=== PATIENT | female | born 1975 | race Hispanic/Latino ===

== ENCOUNTER 2020-11-04 13:46 | Emergency (ER) | payer OTHER, SELFPAY ==
--- NOTE | ~2020-11-04 | XR_ITS ---
EXAMINATION: XR lumbar spine min 4V DATE: 11/04/2020 14:20 INDICATION: Pain radiating to both legs. TECHNIQUE: Anteroposterior, lateral, and bilateral oblique views of the lumbar spine, and cone-down l ateral view of the lumbosacral junction were obtained. COMPARISON: CT abdomen and pelvis dated 08/01/2018 and 12/03/2010 FINDINGS: Alignment is normal. Vertebral body heights are normal. No pars interarticularis defects. Mild disc h eight loss at L3-L4, L4-L5 and L5-S1. Mild bilateral sacroiliac osteoarthritis. Lumbar facet joints a re unremarkable. Benign sclerotic lesion at the left posterior iliac spine which is been present sinc e 2010. IMPRESSION: 1. Mild lumbar spondylosis. Reviewed, dictated and finalized at location A. IMPRESSION: 1. Mild lumbar spondylosis.
[2020-11-04 13:53] VITALS: BP 97/61; PULSE 71; RESP 16; TEMP 36.3; O2SAT 100
[2020-11-04] MEDS: LIDOCAINE 5% PATCH 1 PATCH TRANSDERM (15:17)
[2020-11-04] MEDS: CYCLOBENZAPRINE HCL 10 MG TABLET PO (15:17)
[2020-11-04] MEDS: HYDROcodone/acetaminophen (*CRX) 5-325 MG TABLET 1 TAB PO (15:17)
[2020-11-04 15:22] LABS: Add Urine Microscopic? NO; Appearance Urine Clear (Clear); Bilirubin Urine Negative (Negative); Blood Urine Negative (Negative); Color Urine Colorless (Yellow); Glucose Urine UA Negative (Negative); Ketones Urine Negative (Negative); Leukocyte Esterase Ur Negative LEU/UL (Negative); Nitrate Urine Negative (Negative); Protein Urine Negative (Negative); Urobilinogen Urine Negative mg/dL (<2.0)
[2020-11-04 15:28] LABS: Specific Grav Ur 1.004 (1.001-1.035)
--- NOTE | 2020-11-04 15:32 | ED.GENADULT ---
HPI - General Adult General Chief complaint: Back Pain/Injury Stated complaint: BACK PAIN Time Seen by Provider: 11/04/20 14:03 Source: patient and RN notes reviewed Mode of arrival: ambulatory Limitations: no limitations History of Present Illness HPI narrative: Patient is a 45-year-old female who presents to emergency department for evaluation of low back pain for 3 days across the lumbar region into the hips patient attempted [id number] medications with minimal improvement does note frequent lifting but denies injury or trauma illness patient on arrival does not appear distressed or uncomfortable she has not been seen for this complaint Related Data Home Medications Medication Instructions Recorded Confirmed allopurinol 11/04/20 11/04/20 ergocalciferol (vitamin D2) 11/04/20 [Vitamin D2] levonorg-eth estrad triphasic tablet 11/04/20 [Enpresse] lisinopril 11/04/20 loratadine mg 11/04/20 Allergies Allergy/AdvReac Type Severity Reaction Status Date / Time No Known Allergies Allergy Verified 11/04/20 13:46 Review of Systems Review of Systems: All systems reviewed & are unremarkable except as noted in HPI and below PMFSH Past Medical History Medical History (Updated 11/04/20 @ 15:38 by Ziyad Alexander PA-C) Chronic kidney disease Social History Social History Smoking status: Never smoker Gender identity (if verbalized by the patient): Female Exam Narrative: Exam Narrative: GENERAL: Well-appearing, well-nourished, and in no acute distress. HEAD: Normocephalic, atraumatic. EYES: PERRLA and EOMI. ENT: Nares clear, no rhinorrhea or epistaxis. Mucous membranes moist. CHEST: Clear to auscultation. No respiratory distress. No wheezes rales or rhonchi HEART: Regular rate and rhythm. No murmur heard. Normal peripheral pulses. EXTREMITIES: Normal range of motion. No edema. Tenderness across the lumbar spine SKIN: Warm, dry, no rash. NEURO: No focal deficits. Alert and oriented x3. Normal speech and gait PSYCH: Normal mood and affect. Course Course Emergency Course: Patient evaluated emergency department no concerning findings at this time will be referred back to primary care and treated medically ABCs and vital signs intact and stable patient made aware of case findings and treatment plan Vital Signs Vital signs: Vital Signs Temperature 97.3 F L 11/04/20 13:53 Pulse Rate 71 11/04/20 13:53 Respiratory Rate 16 11/04/20 13:53 Blood Pressure 97/61 L 11/04/20 13:53 Pulse Oximetry 100 11/04/20 13:53 Temperature 97.3 F L 11/04/20 13:53 Pulse Rate 71 11/04/20 13:53 Respiratory Rate 16 11/04/20 13:53 Blood Pressure 97/61 L 11/04/20 13:53 Pulse Oximetry 100 11/04/20 13:53 Medical Decision Making MDM Narrative Medical decision making narrative: Patients pain is positional in nature and localized to back without signs of cord compression or cauda equina based on neurological exam, skeletal exam and history. No fever or other significant factors to suggest osteomyelitis or spinal epidural abscess. No symptoms or signs to suggest pain is referred from abdominal or / cardiopulmonary sources. No pulsatile masses noted on exam. Patient ambulates with steady gait and is stable for outpatient management given case findings. Vital Signs Vital Signs: Vital Signs Temperature 97.3 F L 11/04/20 13:53 Pulse Rate 71 11/04/20 13:53 Respiratory Rate 16 11/04/20 13:53 Blood Pressure 97/61 L 11/04/20 13:53 Pulse Oximetry 100 11/04/20 13:53 Temperature 97.3 F L 11/04/20 13:53 Pulse Rate 71 11/04/20 13:53 Respiratory Rate 16 11/04/20 13:53 Blood Pressure 97/61 L 11/04/20 13:53 Pulse Oximetry 100 11/04/20 13:53 Lab Data Labs: Lab Results 11/04/20 Range/Units 15:10 Urine Color Colorless (Yellow) Urine Appearance Clear (Clear) Urine pH 7.0 (5.0-9.0) Ur
== END 2020-11-04 15:49 | disposition home or self-care (01) ==
PROVIDERS: Emergency Medicine Emergency Medical Services; Emergency Provider Emergency Medicine; PCP Family Medicine
DX: M54.5 Low back pain (principal); N18.9 Chronic kidney disease, unspecified
CPT/HCPCS: 72110; 81003; 81025; 99283; A9270

== ENCOUNTER 2021-03-18 08:38 | Emergency (ER) | payer OTHER, SELFPAY ==
[2021-03-18 08:47] VITALS: BP 111/75; PULSE 63; RESP 16; TEMP 36.3; O2SAT 100
[2021-03-18 08:48] VITALS: BP 111/75; PULSE 63; RESP 16; TEMP 36.3; O2SAT 100
--- NOTE | 2021-03-18 08:50 | ED.URI ---
HPI - URI/Sore Throat General Chief Complaint: Upper Respiratory Infection Stated Complaint: Sore Throat,Cough Time Seen by Provider: 03/18/21 08:50 Source: patient, RN notes reviewed and old records reviewed Mode of arrival: ambulatory Limitations: no limitations History of Present Illness HPI Narrative: 46-year-old female who presents to [facility] with complaints with cough and sore throat and runny nose. Patient states that she has had a dry irritated throat for 7-8 days and for the past 3 days she has had cough and body aches and runny nose.Patient has taken Loratadine daily, some cold and flu medication and using cough drops, and has also taken some aspirin for her body aches. Patient has history of polycystic kidney disease.Patient did have COVID 19 in November of 2019. MD elicited complaint: cough and sore throat Related Data Home Medications Medication Instructions Recorded Confirmed allopurinol 100 mg PO DIRECTED 11/04/20 03/18/21 ergocalciferol (vitamin D2) 1,250 mcg PO DAILY 11/04/20 03/18/21 [Vitamin D2] levonorg-eth estrad triphasic 1 tablet PO DAILY 11/04/20 03/18/21 [Enpresse] lisinopril 10 mg PO DAILY 11/04/20 03/18/21 loratadine 10 mg PO DAILY 11/04/20 03/18/21 ferrous sulfate [FeroSul] 325 mg PO DAILY 03/18/21 03/18/21 phentermine 37.5 mg PO DAILY 03/18/21 03/18/21 tolvaptan (polycys kidney dis) 1 ea PO DAILY 03/18/21 03/18/21 [Jynarque] Allergies Allergy/AdvReac Type Severity Reaction Status Date / Time No Known Allergies Allergy Verified 03/18/21 08:45 Review of Systems Review of Systems: CONSTITUTIONAL: Denies fever, chills, or sweats. EYES: Denies visual changes, redness, or discharge. ENT: Positive for rhinorrhea, congestion, sore throat, no otalgia. CARDIOVASCULAR: Denies chest pain, palpitations, or edema. RESPIRATORY: Positive cough denies dyspnea. GASTROINTESTINAL: Denies abdominal pain, nausea, vomiting, or diarrhea. GENITOURINARY: Denies dysuria or hematuria. SKIN: Denies rash or itching. MUSCULOSKELETAL: Denies acute back pain,no other joint pain, positive for body aches NEUROLOGIC: Denies headache, numbness, or weakness. PSYCHIATRIC: Denies anxiety or depression. All systems reviewed & are unremarkable except as noted in HPI and below PMFSH Past Medical History Medical History (Updated 03/19/21 @ 21:41 by Mariana Schwarz NP) Chronic kidney disease COVID-19 Hypertension Polycystic kidney disease Surgical History Surgical History (Updated 03/19/21 @ 21:39 by Mariana Schwarz NP) No history of previous surgery Family History Family History (Updated 03/18/21 @ 09:22 by Mariana Schwarz NP) Mother Breast cancer Carcinoma of colon Other Family history of polycystic kidney disease Social History Social History (Updated 03/19/21 @ 21:39 by Mariana Schwarz NP) Smoking status: Never smoker Alcohol intake: never Substance use: never Living arrangements: with family Gender identity (if verbalized by the patient): Female Comments At time of signature, agree with nursing past medical, surgical, social and family history. There is no relevant family history pertinent to the presenting complaint Exam Narrative: GENERAL: Well-appearing, well-nourished, and in no acute distress. HEAD: Normocephalic, atraumatic. EYES: PERRLA and EOMI. ENT: Nares red with some clear nasal rhinorrhea no epistaxis. Mucous membranes moist.TM's normal with good light reflex,throat with some redness no exudates or lesions, no tonsil enlargement some post nasal drainage noted NECK: Supple.no lymphadenopathy CHEST: Clear to auscultation. No respiratory distress.dry cough, SAO2 100% on room air. HEART: Regular rate and rhythm. No murmur heard. Normal peripheral pulses. ABDOMEN: Soft, nontender, nondistended, normal active bowel sounds. EXTREMITIES: Normal range of motion. No edema. SKIN: Warm, dry, no rash. NEURO: No focal deficits. Alert and oriented x3. Course Vital
== END 2021-03-18 09:44 | disposition home or self-care (01) ==
PROVIDERS: Emergency Provider Registered Nurse; PCP Family Medicine
DX: J06.9 Acute upper respiratory infection, unspecified (principal); J02.9 Acute pharyngitis, unspecified; Z20.822 Contact with and (suspected) exposure to COVID-19; I12.9 Hypertensive chronic kidney disease with stage 1 through stage 4 chronic kidney disease, or unspecified chronic kidney disease; N18.9 Chronic kidney disease, unspecified; E28.2 Polycystic ovarian syndrome; Z86.16 Personal history of COVID-19
CPT/HCPCS: 87081; 87426; 87880; 99213; C9803; G0463

== ENCOUNTER 2021-04-22 13:17 | Emergency (ER) | payer OTHER, SELFPAY ==
[2021-04-22 13:25] VITALS: BP 118/81; PULSE 64; RESP 16; TEMP 37.1; O2SAT 98
[2021-04-22] MEDS: predniSONE 10 MG TABLET 50 MG PO (14:00)
--- NOTE | 2021-04-22 14:06 | ED.GENADULT ---
HPI - General Adult General Chief complaint: Allergic Reaction Stated complaint: Swollen Lips Time Seen by Provider: 04/22/21 13:32 Source: patient and RN notes reviewed Mode of arrival: ambulatory Limitations: no limitations History of Present Illness HPI narrative: Patient presents today complaining of swelling to her upper lip since this morning. States it itches slightly, but denies pain. Denies any new medications, new foods, new household products. States similar symptoms have happened in the past when she was in a stressful situation. Now, her uncle a few days ago in [place]. She has tried no medications for symptoms prior to arrival. She did drive herself here today. Denies shortness of breath, difficulty swallowing, swelling in her tongue, scratchiness in her throat. MD complaint: Swollen lymph Related Data Home Medications Medication Instructions Recorded Confirmed allopurinol 100 mg PO DIRECTED 11/04/20 03/18/21 ergocalciferol (vitamin D2) 1,250 mcg PO DAILY 11/04/20 03/18/21 [Vitamin D2] levonorg-eth estrad triphasic 1 tablet PO DAILY 11/04/20 03/18/21 [Enpresse] lisinopril 10 mg PO DAILY 11/04/20 03/18/21 loratadine 10 mg PO DAILY 11/04/20 03/18/21 ferrous sulfate [FeroSul] 325 mg PO DAILY 03/18/21 03/18/21 phentermine 37.5 mg PO DAILY 03/18/21 03/18/21 tolvaptan (polycys kidney dis) 1 ea PO DAILY 03/18/21 03/18/21 [Jynarque] Allergies Allergy/AdvReac Type Severity Reaction Status Date / Time No Known Allergies Allergy Verified 03/18/21 08:45 Review of Systems Review of Systems: CONSTITUTIONAL: Denies body aches, fever, chills, or sweats. EYES: Denies visual changes, redness, or discharge. ENT: Denies rhinorrhea, congestion, sore throat, or otalgia.+ Swollen upper lip CARDIOVASCULAR: Denies chest pain, palpitations, or edema. RESPIRATORY: Denies cough or dyspnea. GASTROINTESTINAL: Denies abdominal pain, nausea, vomiting, or diarrhea. GENITOURINARY: Denies dysuria or hematuria. SKIN: Denies rash, itching, or wounds. MUSCULOSKELETAL: Denies back pain, joint pain, or myalgia. NEUROLOGIC: Denies headache, numbness, tingling, or weakness. PSYCH: Denies depression or anxiety. [facility] Past Medical History Medical History Chronic kidney disease COVID-19 Hypertension Polycystic kidney disease Surgical History Surgical History No history of previous surgery Family History Family History Mother Breast cancer Carcinoma of colon Other Family history of polycystic kidney disease Social History Social History Smoking status: Never smoker Alcohol intake: never Substance use: never Gender identity (if verbalized by the patient): Female Comments At time of signature, I have reviewed and agree with nursing past medical, surgical, social and family history unless otherwise noted. Please see nursing chart for further information. There is no relevant family history pertinent to the presenting complaint Exam Narrative: GENERAL: Well-appearing, well-nourished, and in no acute distress. HEAD: Normocephalic, atraumatic. EYES: EOMI. No redness or drainage. Conjunctivae normal. ENT: Mucous membranes pink and moist. Nares clear. No rhinorrhea. TMs normal bilaterally. Throat normal. Uvula midline. Mild swelling to her midline upper lip. No wounds, sores. Tongue normal. NECK: Normal AROM. Supple. No lymphadenopathy. CHEST: No respiratory distress. Clear to auscultation. HEART: Regular rate and rhythm. No murmur appreciated. Normal peripheral pulses. EXTREMITIES: Normal range of motion. No edema. SKIN: Warm, dry, no rash. Capillary refill normal. Normal skin turgor. NEURO: No focal deficits. Alert and oriented x3. Gait steady. PSYCH:
== END 2021-04-22 14:20 | disposition home or self-care (01) ==
PROVIDERS: Emergency Provider Nurse Practitioner; PCP Family Medicine
DX: R22.0 Localized swelling, mass and lump, head (principal); I12.9 Hypertensive chronic kidney disease with stage 1 through stage 4 chronic kidney disease, or unspecified chronic kidney disease; N18.30 Chronic kidney disease, stage 3 unspecified; Q61.3 Polycystic kidney, unspecified; Z86.16 Personal history of COVID-19
CPT/HCPCS: 99213; G0463; J7512

== ENCOUNTER 2022-01-09 22:33 | Emergency (ER) | payer MEDICAID, SELFPAY ==
[2022-01-09 22:38] VITALS: BP 141/69; PULSE 63; RESP 18; TEMP 36.7; O2SAT 100
[2022-01-09 23:13] LABS: RBC Urine 0-2 /hpf (0-2); Squamous Epithelial Cell Urine Rare /hpf (Few)
[2022-01-09 23:14] LABS: Appearance Urine Clear (Clear); Bilirubin Urine Negative (Negative); Blood Urine Negative (Negative); Color Urine Yellow (Yellow); Glucose Urine UA Negative (Negative); Ketones Urine Negative (Negative); Leukocyte Esterase Ur Negative LEU/UL (Negative); Nitrate Urine Negative (Negative); Protein Urine Negative (Negative); Urobilinogen Urine 0.2 mg/dL (<2.0)
[2022-01-09 23:26] LABS: Pregnancy On Board Control Positive; Urine Pregnancy Test Negative
[2022-01-09 23:26] LABS: Add Urine Microscopic? NO
--- NOTE | 2022-01-09 23:33 | ED.FEMALEGU ---
HPI - Female Genitourinary General Chief complaint: Urogenital-Female Stated complaint: ABD pain Time Seen by Provider: 01/09/22 22:55 History of Present Illness HPI Narrative: Patient is a 47-year-old female here for evaluation of a sensation of something is coming out of her vagina for the past several days. States that she has had this sensation intermittently over the past couple years, but over the past week it has been constant, and quite uncomfortable. Reports the pain is in the right groin/ labia majora area. She has not seen an neurodiagnostic technologist in many years, but she has had a pelvic US by her PCP that was reportedly normal. Denies any vaginal discharge, burning, dysuria, urgency, abdominal pain. Related Data Home Medications Medication Instructions Recorded Confirmed allopurinol 100 mg tablet 100 mg PO DIRECTED 11/04/20 03/18/21 ergocalciferol (vitamin D2) 1,250 1,250 mcg PO DAILY 11/04/20 03/18/21 mcg (50,000 unit) capsule (Vitamin D2) l.norgest-eth.estradiol triphasic 1 tablet PO DAILY 11/04/20 03/18/21 50-30 (6)/75-40(5)/125-30(10) tablet (Enpresse) lisinopril 10 mg tablet 10 mg PO DAILY 11/04/20 03/18/21 loratadine 10 mg tablet 10 mg PO DAILY 11/04/20 03/18/21 ferrous sulfate 325 mg (65 mg 325 mg PO DAILY 03/18/21 03/18/21 iron) tablet (FeroSul) phentermine 37.5 mg tablet 37.5 mg PO DAILY 03/18/21 03/18/21 tolvaptan (polycys kidney dis) 45 1 ea PO DAILY 03/18/21 03/18/21 mg (AM)/15 mg (PM) tablets (Jynarque) Allergies Allergy/AdvReac Type Severity Reaction Status Date / Time No Known Allergies Allergy Verified 01/09/22 22:46 Review of Systems Review of Systems: Gen: Denies fevers or chills Eyes: Denies eye pain or visual change ENT: Denies congestion Respiratory: Denies shortness of breath or cough CV: Denies chest pain or palpitations GI: Denies abdominal pain nausea, emesis or diarrhea denies burning, urgency, frequency or hematuria Musculoskeletal: Denies back pain or muscle pain Neuro: Denies numbness, tingling, weakness or focal weakness Skin: Denies rash PMFSH Past Medical History Medical History Chronic kidney disease COVID-19 Hypertension Polycystic kidney disease Surgical History Surgical History No history of previous surgery Family History Family History Mother Breast cancer Carcinoma of colon Other Family history of polycystic kidney disease Social History Social History Smoking status: Never smoker Alcohol intake: never Substance use: never Gender identity (if verbalized by the patient): Female Exam Narrative: APPEARANCE: Well appearing, no pain in distress, well-nourished. Head: Normocephalic and atraumatic. EYES: PERRLA/EOMI, conjunctivae clear NOSE: No nasal drainage EARS: External ear normal in appearance THROAT: Oropharynx is clear. Mucous membranes are moist. NECK: Supple. No adenopathy, no masses. RESPIRATORY: Airway patent, respirations nonlabored. Clear to auscultation bilaterally, no rales, rhonchi, wheezing. CARDIOVASCULAR: Regular rate and rhythm without murmurs, rubs, or gallops. ABDOMINAL: Normoactive bowel sounds. Soft, nontender, nondistended. No rebound tenderness or guarding. MUSCULOSKELETAL: Extremities are warm and well-perfused. Moves all extremities well. No edema. : Exam performed with para machine operator Claudia. Patient has a cystocele visible at the interoitus. Cervix has pinpoint area of friability at the 4 oclock position. No CMT; no vaginal discharge noted. No inguinal lymphadenopathy. NEURO: Normal speech. No focal neurologic deficits. SKIN: Skin is warm and dry. No rashes. PSYCHIATRIC: Normal affect/mood. Course Vital Signs Vital signs: Vital Signs Temperature 98.0 F 07/
[2022-01-09] MEDS: HYDROcodone/acetaminophen (*CRX) 5-325 MG TABLET 1 TAB PO (23:48)
== END 2022-01-10 00:07 | disposition home or self-care (01) ==
PROVIDERS: Physician Assistant; Emergency Provider Emergency Medicine; PCP Family Medicine
DX: N81.10 Cystocele, unspecified (principal); I12.9 Hypertensive chronic kidney disease with stage 1 through stage 4 chronic kidney disease, or unspecified chronic kidney disease; N18.9 Chronic kidney disease, unspecified; Q61.3 Polycystic kidney, unspecified; Z86.16 Personal history of COVID-19
CPT/HCPCS: 81003; 81025; 99284; A9270

== ENCOUNTER 2022-03-06 10:27 | Outpatient (CLI) | payer OTHER, SELFPAY ==
--- NOTE | ~2022-03-06 | XR_ITS ---
EXAM: XR hip RT min 3V w AP pelvis DATE: 03/06/2022 10:54 HISTORY: INGUINAL PAIN RT SIDE X 2 MOS W/OUT INJ . COMPARISON: 10/10/2013. FINDINGS: Normal mineralization. No fracture or dislocation. No lytic or blastic lesion. Mild bilate ral superior joint space narrowing and osteophytosis. Degenerative change and subchondral cyst format ion at the symphysis pubis. No erosion or periosteal change. Soft tissues within normal limits. IMPRESSION: Mild bilateral hip osteoarthritis. Osteitis pubis. Reviewed, dictated and finalized at location K.
== END 2022-03-06 10:28 | disposition home or self-care (01) ==
PROVIDERS: PCP Family Medicine; Visit Provider Nurse Practitioner Family
DX: R10.2 Pelvic and perineal pain (principal); M16.11 Unilateral primary osteoarthritis, right hip; M86.8X8 Other osteomyelitis, other site
CPT/HCPCS: 73502

== ENCOUNTER 2022-04-05 09:59 | Outpatient (CLI) | payer OTHER, SELFPAY ==
--- NOTE | ~2022-04-05 | US_ITS ---
US retroperitoneal comp 04/05/2022 10:22 Procedure: Realtime transabdominal ultrasound of the kidneys and bladder. Indication: History cystic kidney disease Comparison: CT dated 05/31/2019 Findings: There are innumerable cysts throughout both kidneys, consistent with polycystic kidney dise ase. No significant hydronephrosis. No solid masses are seen. The right kidney measures 18.6 cm and l eft kidney measures 16.9 cm. Bladder within normal limits. Impression: 1: Enlarged kidneys bilaterally with innumerable renal cysts, consistent with polycystic kidney disea se. Reviewed, dictated and finalized at location A. Impression: 1: Enlarged kidneys bilaterally with innumerable renal cysts, consistent with p olycystic kidney disease.
== END 2022-04-05 10:00 | disposition home or self-care (01) ==
LOC: ANHIMG 10:01
PROVIDERS: PCP Family Medicine; Visit Provider Urology
DX: Q61.3 Polycystic kidney, unspecified (principal)
CPT/HCPCS: 76770

== ENCOUNTER 2022-06-25 11:25 | Outpatient (CLI) | payer OTHER, SELFPAY ==
--- NOTE | 2022-06-25 12:42 | ECG_ITS ---
Measurements Intervals [address] Rate: 49 P: 59 WI: 141 QRS: -5 QRSD: 93 T: 57 QT: 442 QTc: 402 Interpretive Statements SINUS BRADYCARDIA ABNORMAL ECG NO PREVIOUS ECG AVAILABLE FOR COMPARISON Electronically Signed On 06-25-2022 13:02:59 EXECUTIVE RECEPTIONIST by Gonzalez Beasley D.O.
[2022-06-25 13:35] LABS: Basophils Percent Auto 0.3 % (0.2-1.2); Eosinophils Absolute Auto 0.1 K/mm3 (0-0.3); Eosinophils Percent Auto 0.9 % (0-4.4); Hemoglobin 11.8 g/dL (12.0-15.0); Immature Granulocyte Absolute 0.02 K/mm3 (0.00-0.031); Immature Granulocyte Percent A 0.3 % (0-0.5); Lymphocytes Absolute Auto 1.76 K/mm3 (0.9-3.2); Lymphocytes Percent Auto 23.8 % (18.3-44.2); Mean Corpuscular HGB Conc 31.1 g/dl (32-36); Mean Corpuscular Hemoglobin 30.6 pg (26-34); Mean Corpuscular Volume 98.4 fl (80-100); Mean Platelet Volume 10.1 fl (7.4-10.4); Monocytes Absolute Auto 0.3 K/mm3 (0.1-0.6); Monocytes Percent Auto 4.5 % (2.6-8.5); Neutrophils Absolute Auto 5.2 K/mm3 (1.3-6.7); Neutrophils Percent Auto 70.2 % (45.5-73.1); Platelet Count Result 313 k/mm3 (150-375); Red Blood Count 3.86 M/mm3 (4.2-5.4); White Blood Count 7.4 K/mm3 (4.5-10.0)
[2022-06-25 13:45] LABS: INR 0.9; Partial Thromboplastin Time 24.9 SECONDS (22.3-36.8)
[2022-06-25 13:51] LABS: Alanine Aminotransferase 24 U/L (6-35); Albumin Level 4.4 g/dL (3.5-5.1); Alkaline Phosphatase 86 U/L (38-126); Anion Gap 5 mmol/L (8-16); Aspartate Amino Transferase 26 U/L (14-36); Bilirubin,Total 0.6 mg/dL (0.2-1.3); Blood Urea Nitrogen 31 mg/dL (7-17); Calcium 9.1 mg/dL (8.4-10.2); Carbon Dioxide 26 mmol/L (22-30); Chloride 110 mmol/L (98-107); Estimated Glomerular Filt Rate 24; Glucose 80 mg/dL (65-110); Potassium 4.4 mmol/L (3.4-5.0); Sodium 141 mmol/L (137-145)
== END 2022-06-25 11:26 | disposition home or self-care (01) ==
PROVIDERS: PCP Family Medicine; Visit Provider Urology
DX: N99.3 Prolapse of vaginal vault after hysterectomy (principal); Z01.818 Encounter for other preprocedural examination; R94.31 Abnormal electrocardiogram [ECG] [EKG]
CPT/HCPCS: 36415; 80053; 85025; 85610; 85730; 86850; 86900; 86901; 87086; 93005

== ENCOUNTER 2022-07-01 00:44 | Day surgery (SDC) | payer OTHER, SELFPAY ==
[2022-06-25 12:01] VITALS: BP 132/55; PULSE 63; RESP 16; TEMP 36.1; O2SAT 100; BMI 29.4
--- NOTE | 2022-06-25 12:17 | PC.NURSE ---
Report to the Outpatient Waiting Room, entrance under the green pavilion located off [facility], at time __10:00AM on date __07/01/22 . Planned Procedure Time: _12:00PM . Time changes happen often and if your time is changed the preop area will call you the afternoon before. - You and your visitor will be asked to self-screen and do not enter if you have any COVID symptoms. - Only one visitor is requested with a max of two and NO children visitors are allowed at this time. - The patient visitor may be requested to leave or wait in car when not with patient due to distancing restrictions. - A mask is optional within the hospital. Patients may have clear liquids (water, carbonated beverages, clear teas, apple juice) until 3 hours prior to surgery with a maximum of 20 ounces. - No food from midnight until time of surgery Take the following medications with a SIP of water the morning of surgery: __NONE Medications to discontinue per physician ___HOLD ALL VITAMINS/SUPPLEMENTS 3 DAYS PRE-OP Date to take last dose____06/27/22 Please no make-up, nail albanian, hairspray, perfume, deodorant, or body powder the day of surgery. No jewelry (including any body piercings) or valuables the day of surgery, leave them at home. Please take a shower or bath the night before, or the morning of, surgery with an antibacterial soap. Wear comfortable, loose fitting clothing. Children are encouraged to wear pajamas. - Jewelry must be removed prior to entering the operating room. Rings and piercings that are not removed may be cut off. - The hospital will not accept responsibility for valuables. - Please leave all valuables, including medications, at home the day of surgery. If you are going home after surgery, a licensed reefer truck driver must drive you home. - NO public transportation without another adult if you receive anesthesia. - We recommend that an adult stay with you for 24 hours following discharge. - We also recommend that you do not drive, make important decision, drink alcoholic beverages, or take any drugs that were not prescribed by your health care provider for at least 24 hours after your discharge time. Follow any additional instructions given to you from your surgeon. If you or anyone in your household have experienced Covid symptoms in the past week, please notify your surgeon or the nurse liaison at the phone number below for possible testing. Telephone instructions given to __PATIENT and asked if any additional questions and then verbalized understanding. Patient advised to call surgeon office or pre surgery nurse liaison [phone] if any additional questions.
--- NOTE | 2022-06-27 07:41 | PM.IMHP ---
H&P: HPI History of Present Illness Date/Time: 06/27/22 07:41 Chief Complaint: Prolapse Narrative: 47-year-old female with uterine prolapse admitted for robotic total vaginal hysterectomy bilateral salpingectomy and sacral colpopexy. This has been going on for some time she desires Parres permanent fixation. She declined pessary or other forms of treatment. Risks and benefits reviewed in great detail [facility] Past Medical History Medical History Chronic kidney disease COVID-19 Hypertension Polycystic kidney disease Surgical History Surgical History No history of previous surgery Family History Family History Mother Breast cancer Carcinoma of colon Other Family history of polycystic kidney disease Social History Social History Smoking status: Never smoker Alcohol intake: never Substance use: never Additional living arrangements comments: AND 2 CHILDREN Gender identity (if verbalized by the patient): Female Spiritual care concerns: No Meds Home Medications and Allergies Home Medications Medication Instructions Recorded Confirmed Type acetaminophen 650 mg 650 mg PO Q12H PRN pain #10 tabs 11/04/20 06/25/22 Rx tablet,extended release (Tylenol Arthritis Pain) allopurinol 100 mg tablet 100 mg PO DAILY 11/04/20 06/25/22 History ergocalciferol (vitamin D2) 1,250 1,250 mcg PO MONTHLY 11/04/20 06/25/22 History mcg (50,000 unit) capsule (Vitamin D2) l.norgest-eth.estradiol triphasic 1 tablet PO DAILY 11/04/20 06/25/22 History 50-30 (6)/75-40(5)/125-30(10) tablet (Enpresse) lisinopril 10 mg tablet 10 mg PO HS 11/04/20 06/25/22 History ferrous sulfate 325 mg (65 mg 325 mg PO DAILY 03/18/21 06/25/22 History iron) tablet (FeroSul) phentermine 37.5 mg tablet 14.2 mg PO 2XW 03/18/21 06/25/22 History tolvaptan (polycys kidney dis) 60 1 ea PO DAILY 06/25/22 06/25/22 History mg (AM)/30 mg (PM) tablets (Jynarque) Allergies Allergy/AdvReac Type Severity Reaction Status Date / Time No Known Allergies Allergy Verified 06/25/22 11:53 Exam Const: General: cooperative, healthy appearing, comfortable and well groomed Orientation/consciousness: oriented to person, oriented to place and oriented to time HENMT: Head: normal to inspection Resp: Effort & Inspection: normal respiratory effort Cardio: Rate: regular rate Rhythm: regular rhythm Heart sounds: S1 normal heart sound present and S2 normal heart sound present GI: Inspection: normal to inspection : External Female Exam: normal external appearance Speculum Exam - Vagina: normal appearance of the vagina Speculum Exam - Cervix: normal appearance of the cervix and Other cervical findings present (Second-degree prolapse is present with cystocele) Bimanual exam- vagina & uterus: enlarged Bimanual Exam- Adnexa, other: normal adnexae Assessment and Plan Assessment and plan (1) Uterine prolapse: Code(s): N81.4 - Uterovaginal prolapse, unspecified Status: Acute Plan Robotic supracervical hysterectomy and bilateral salpingectomy. Dr. Greene will proceed with robotic sacral colpopexy and possible sling please see his history and physical for full details
--- NOTE | 2022-06-28 09:50 | P.HP_ITS ---
H&P: HPI History of Present Illness Date/Time: 06/28/22 09:50 Chief Complaint: Pelvic organ prolapse Narrative: 47-year-old female with cystocele and uterine prolapse. She has occult stress incontinence on urodynamics. She desires surgical correction. Review of Systems Review of Systems: All systems reviewed & are unremarkable except as noted in HPI and below PMFSH Past Medical History Medical History Chronic kidney disease COVID-19 Hypertension Polycystic kidney disease Surgical History Surgical History No history of previous surgery Family History Family History Mother Breast cancer Carcinoma of colon Other Family history of polycystic kidney disease Social History Social History Smoking status: Never smoker Alcohol intake: never Substance use: never Additional living arrangements comments: AND 2 CHILDREN Gender identity (if verbalized by the patient): Female Spiritual care concerns: No Meds Home Medications and Allergies Home Medications Medication Instructions Recorded Confirmed Type acetaminophen 650 mg 650 mg PO Q12H PRN pain #10 tabs 11/04/20 06/25/22 Rx tablet,extended release (Tylenol Arthritis Pain) allopurinol 100 mg tablet 100 mg PO DAILY 11/04/20 06/25/22 History ergocalciferol (vitamin D2) 1,250 1,250 mcg PO MONTHLY 11/04/20 06/25/22 History mcg (50,000 unit) capsule (Vitamin D2) l.norgest-eth.estradiol triphasic 1 tablet PO DAILY 11/04/20 06/25/22 History 50-30 (6)/75-40(5)/125-30(10) tablet (Enpresse) lisinopril 10 mg tablet 10 mg PO HS 11/04/20 06/25/22 History ferrous sulfate 325 mg (65 mg 325 mg PO DAILY 03/18/21 06/25/22 History iron) tablet (FeroSul) phentermine 37.5 mg tablet 14.2 mg PO 2XW 03/18/21 06/25/22 History tolvaptan (polycys kidney dis) 60 1 ea PO DAILY 06/25/22 06/25/22 History mg (AM)/30 mg (PM) tablets (Jynarque) Allergies Allergy/AdvReac Type Severity Reaction Status Date / Time No Known Allergies Allergy Verified 06/25/22 11:53 Exam Narrative: No acute distress Alert orient x3 Urethral mobility noted Cystocele at +2 to +3 [place] at -1 Assessment and Plan Assessment and plan (1) Uterine prolapse: Code(s): N81.4 - Uterovaginal prolapse, unspecified Status: Acute Assessment and Plan: Robotic colpopexy. Understands risks of bleeding, infection, damage surrounding organs, damage to the urinary tract, vaginal mesh extrusion, recurrence of prolapse, diskitis, hip and leg pain, dyspareunia. Agrees to proceed (2) AISLINN (stress urinary incontinence, female): Code(s): N39.3 - Stress incontinence (female) (male) Status: Acute Assessment and Plan: Concomitant urethral sling. Understands risks of bleeding, infection, damage to the urinary tract, vaginal mesh extrusion, urinary tract mesh erosion, obstructive voiding requiring a 2nd procedure, hip and leg pain, risks of anesthesia. She agrees to proceed
[2022-07-01] VITALS (11 sets, daily range): BP systolic 92–144; BP diastolic 57–74; PULSE 50–78; RESP 14–18; TEMP 36.1–36.7; O2SAT 100
--- NOTE | ~2022-07-01 | US_ITS ---
Renal-Bladder ultrasound Clinical History: Hematuria Technique: Real-time sonographic imaging of the kidneys and urinary bladder was performed. Findings: The right kidney measures 11.0 cm in length and the left kidney measures 13.8 cm. Multiple bilateral renal cysts are present. No definite hydronephrosis or renal stones seen. The urinary bladder is decompressed with Nash catheter present. Impression: Numerous bilateral renal cysts, without definite hydronephrosis. Reviewed, dictated and finalized at location . TING MACHINE HELPER Impression: Numerous bilateral renal cysts, without definite hydronephrosis.
--- NOTE | 2022-07-01 06:54 | WPDHPUPDATE1 ---
History and Physical Update Update Date/Time: 07/01/22 06:54 History and Physical has been reviewed, including an updated exam of the patient. There are NO changes in the patient's condition. Risks, benefits, and alternatives have been discussed and questions answered. Patient agrees to proceed with procedure.
--- NOTE | 2022-07-01 07:39 | WPDHPUPDATE1 ---
History and Physical Update Update Date/Time: 07/01/22 07:39 History and Physical has been reviewed, including an updated exam of the patient. There are NO changes in the patient's condition. Risks, benefits, and alternatives have been discussed and questions answered. Patient agrees to proceed with procedure.
--- NOTE | 2022-07-01 10:45 | WPDANESEPPF ---
Anes - Initial Pre Proc Eval Procedure: Operation Date: 07/01/22 12:00 Proposed Procedures p Robotic Sacrocolpopexy, Possible Urethral Sling - Brooks Greene MD s Robotic Assisted Supracervical Hysterectomy With Bilateral Salpingectomy - Erik Elliott MD Date/Time: 07/01/22 10:45 Surgeon: Brooks Greene MD Pre Op Diagnosis: incomp vag vault prolapse Patient Data Age: 47 Gender: F Height: 1.57 m Weight: 73 kg Last Vital Signs Temp 97.0 F L 06/25/22 12:01 Pulse 63 06/25/22 12:01 Resp 16 06/25/22 12:01 BP 132/55 L 06/25/22 12:01 Pulse Ox 100 06/25/22 12:01 O2 Del Method Room Air 06/25/22 12:01 Allergies Allergy/AdvReac Type Severity Reaction Status Date / Time No Known Allergies Allergy Verified 06/25/22 11:53 Home Medications Medication Instructions Recorded Confirmed Type acetaminophen 650 mg 650 mg PO Q12H PRN pain #10 tabs 11/04/20 06/25/22 Rx tablet,extended release (Tylenol Arthritis Pain) allopurinol 100 mg tablet 100 mg PO DAILY 11/04/20 06/25/22 History ergocalciferol (vitamin D2) 1,250 1,250 mcg PO MONTHLY 11/04/20 06/25/22 History mcg (50,000 unit) capsule (Vitamin D2) l.norgest-eth.estradiol triphasic 1 tablet PO DAILY 11/04/20 06/25/22 History 50-30 (6)/75-40(5)/125-30(10) tablet (Enpresse) lisinopril 10 mg tablet 10 mg PO HS 11/04/20 06/25/22 History ferrous sulfate 325 mg (65 mg 325 mg PO DAILY 03/18/21 06/25/22 History iron) tablet (FeroSul) phentermine 37.5 mg tablet 14.2 mg PO 2XW 03/18/21 06/25/22 History tolvaptan (polycys kidney dis) 60 1 ea PO DAILY 06/25/22 06/25/22 History mg (AM)/30 mg (PM) tablets (Jynarque) Patient hx anesthesia problems: none Family hx anesthesia problems: none Results Review: All pre-operative results and documents have been reviewed as part of the pre-operative evaluation. [facility] Past Medical History Medical History Chronic kidney disease COVID-19 Hypertension Polycystic kidney disease Surgical History Surgical History No history of previous surgery Family History Family History Mother Breast cancer Carcinoma of colon Other Family history of polycystic kidney disease Social History Social History Smoking status: Never smoker Alcohol intake: never Substance use: never Living arrangements: with family Additional living arrangements comments: AND 2 CHILDREN Gender identity (if verbalized by the patient): Female Spiritual care concerns: No Anes - Eval Final PreProcedure Day of Procedure 07/01/22 10:45 Patient weight: normal Heart: regular rate and rhythm Lungs: clear to auscultation Airway: Mallampati scale class II Neurological: alert and oriented Last oral intake: >/= 8 hours ASA classification: II Emergent: no Anesthetic plan: proceed Anesthesia type and monitoring: general ETT and standard monitoring Results Review: All pre-operative results and documents have been reviewed as part of the pre-operative evaluation. Informed Consent: The patient's anesthetic plan and its attendant risks and benefits were discussed with the patient/family/POA. Questions were solicited and answers provided to the satisfaction of the patient/family/POA.
[2022-07-01] MEDS: LACTATED RINGERS 1,000 ML 30 ML IV CONT ×2 (10:46→15:41)
[2022-07-01] MEDS: ACETAMINOPHEN 500 MG TABLET 1000 MG PO (10:52)
[2022-07-01] MEDS: KETOROLAC 15 MG/ML VIAL (*BKC) IV PUSH (10:53)
[2022-07-01] MEDS: ceFAZolin 2 GM/D5W 50 ML 2 GM/50 ML BAG IVPB (12:27)
[2022-07-01] MEDS: metroNIDAZOLE 500 MG/ISO 100ML 500 MG/100 ML BAG 100 MG IVPB ×2 (12:33→19:56)
[2022-07-01] MEDS: BUPIVACAINE/EPINEPHRINE 0.5% 30 ML VIAL 10 ML INFILTRATE (13:00)
--- NOTE | 2022-07-01 13:31 | W.PM.PROC2 ---
Procedure Note - Detailed Date of Procedure 07/01/22 Pre-op Diagnosis incomp vag vault prolapse Post-op Diagnosis Same Procedure Performed Robotic supracervical hysterectomy and bilateral salpingectomy Surgeon Erik Elliott MD Anesthesia General Indications this is a 47-year-old female with a large fibroid uterus and severe pelvic prolapse and stress urinary incontinence Findings markedly enlarged uterus with multiple fibroids retroverted. Normal-appearing ovaries and tubes bilaterally. Description of Procedure Patient was prepped draped in normal sterile fashion placed in the dorsal lithotomy position. Under excellent general trach anesthesia weighted speculum placed in posterior fornix vagina anterior lip of cervix grasped with single-tooth tenaculum Sauer's cannula inserted to the single-tooth and attached for uterine manipulation. A 16 Sinhala catheter was placed in the bladder drained of clear urine. The gloves were changed and the other in the remainder the instruments removed. The doctor Jc proceeded to dock the robot please see his operative report for full details. I attended the veterans' counselor. The left round ligament grasped, burned, cut. Anteriorly a bladder flap was formed by sharply dissecting the peritoneum and reflecting the bladder caudally away from the cervix and uterus to the opposite round ligament which was clamped, burned, cut. The uterus was retroverted noted to have multiple large fibroids. The left fallopian tube was then skeletonized and clamped burned and cut away from the ovarian complex to leave attached to the uterine complex this was repeated on the contralateral side to the right fallopian tube. The left utero-ovarian ligament was skeletonized clamping burning cutting and bring that to level previous cut ligament. This was repeated on the contralateral side to conserve the right ovary. The left cardinal broad ligaments were then serially skeletonized clamping burning cutting and hugging the uterine cervix until the uterine vessels could be seen on the left. In like fashion the cardinal broad ligaments on the right were serially skeletonized clamping burning cutting and bringing this down the lateral edge until the uterine vessels on the right could be seen these were individually clamped, burned, cut. A supracervical incision made and the uterus removed with the tubes from the stump. This was cut into 4 pieces and placed into Endo-Catch bags. Blood loss to this point was 25cc. Dr. Greene took over from there the patient tolerated this procedure well blood loss for this portion was 25cc please see his operative report for the remainder of the procedure Estimated Blood Loss 25 Drains No Packing No Pathology Yes Complications No immediate complications Condition Stable Disposition No change
--- NOTE | 2022-07-01 15:37 | W.PM.PROC2 ---
Procedure Note - Detailed Date of Procedure 07/01/22 Pre-op Diagnosis Uterine prolapse Post-op Diagnosis Same Procedure Performed Robotic assisted laparoscopic sacral colpopexy Cystoscopy Surgeon Brooks Greene MD Anesthesia General Indications This is a woman with uterine prolapse. She does not have stress incontinence by history, but did exhibit on urodynamics. Therefore she has a cold stress incontinence. She desires surgical correction. She is here for the above. She understands risks of bleeding, infection, diskitis, damage to surrounding organs, damage to the bladder urethra, bowel injury, bowel obstruction, mesh related complications including exposure and extrusion, postoperative voiding dysfunction including incontinence and retention, need for ancillary procedures, dyspareunia, recurrence of prolapse, and other perioperative intraoperative postoperative complications. She agrees to proceed. Findings See below Description of Procedure She was correctly identified. Informed consent obtained. She from the operating room. She was given general anesthesia. She was given appropriate perioperative antibiotics. She was placed a low lithotomy position. Pressure points were padded. A time-out performed. I marked out the skin 3 fingerbreadths cephalad to the umbilicus. I anesthetized the skin. I incised the skin. I dissected down to the fascia. I grasped the fascia with Britney clamps. I entered the fascia sharply in a Auguste type technique. I placed sutures for later fascial closure. I placed a midline trocar. I examined the abdomen. There is no sign of any injury. Under direct vision I placed 2 additional trocars in the right upper quadrant and 2 additional trocars the left upper quadrant. She was placed in steep Trendelenburg. The robot was docked. Her rehabilitation services aide completed their portion of the procedure. Please see that operative report for details. I then sat at the console. The Sizer in the vagina created plane on the anterior and posterior vaginal wall. I took great care not to injure the vagina, bladder, or rectum. I introduced the mesh into the abdomen. I sewed the anterior leaflet of mesh on the anterior vaginal wall. I sewed the posterior leaflet of mesh on the posterior vaginal wall. This was done with several sutures of 2 0 Wagener-Chau. I reflected the colon laterally. I opened the posterior peritoneum over the sacral promontory. I carried this into the cul-de-sac. I freed up the edges for later retroperitonealization. I located the anterior longitudinal ligament the sacrum. I cleaned off all fatty tissues. I then tensioned my mesh appropriately. I did a vaginal exam the bedside. I assured prolapse reduction without undue tension. I then sewed the proximal leaflet of mesh onto the anterior longitudinal ligament of the sacrum with several sutures of 2 0 Wagener-Chau. I then used a 2 0 Monocryl to completely and meticulously retroperitonealized all mesh. I allowed the colon to go back to its normal anatomic location. There is no sign of any impingement. The specimen was then removed. All ports removed. Fascia was tied down. Skin was closed with Monocryl and surgical glue. She was repositioned as I had planned to do urethral sling to prevent occult incontinence. I marked out the inner thigh incisions. I anesthetized the skin and made the incisions. I then anesthetized the anterior vaginal wall at the mid urethra. I made a 1 cm incision. I dissected out laterally taking great care not to injure the urethra or the vaginal wall. I then noted blood at the meatus. I decided to perform cystoscopy at this time. There was some hematuria within the bladder. I examined the bladder and urethra extensively with both the 70 and 30 degree lens. Once I washed the blood out of the bladder I saw no bladder or urethral injury or violation. The irrigant was then completely clear. Again I examined this extensively with tasha
--- NOTE | 2022-07-01 16:42 | SUR.PHASEI ---
164-Call to Dr. Greene for patient's urine appearing light red/bloody with absence of blood clots. Dr. Greene said of no concern at this time. 165- Dr. Greene to recovery room and assessed patient at this time. Per Dr. Greene continue monitoring urine output and he will place orders for RN to discontinue teran catheter POD [address] Rubi Elliott rounds on patient.
[2022-07-01] MEDS: KCL 20 MEQ/D5/0.45% SOD CHL 1,000 ML 100 ML IV CONT (19:18)
[2022-07-01] MEDS: lisinopriL 10 MG TABLET PO (21:17)
[2022-07-01] MEDS: HYDROcodone/acetaminophen (*CRX) 5-325 MG TABLET 1 TAB PO (21:17)
[2022-07-02 00:15] VITALS: BP 104/57; PULSE 83; RESP 16; TEMP 36.9
[2022-07-02] MEDS: metroNIDAZOLE 500 MG/ISO 100ML 500 MG/100 ML BAG 100 MG IVPB (04:24)
[2022-07-02 04:25] VITALS: BP 89/56; PULSE 60; RESP 16; TEMP 36.4
--- NOTE | 2022-07-02 07:24 | PM.GYNPNOP ---
ENTERPRISE APPLICATION ADMINISTRATOR - A/P Postoperative Procedures: Procedures Operation Date: 07/01/22 12:00 Actual Procedure Side Surgeon p Robotic Sacrocolpopexy Not Applicable Brooks Greene MD s Robotic Assisted Supracervical Hysterectomy With Bilateral Salpingectomy Erik Elliott MD Postoperative day: 1 Postoperative status: doing well and other (Blood tinged urine still present) Postoperative plan: routine post-op care, see orders and other (Will get renal ultrasound and discharge patient with Nash bag) Time Spent With Patient Time: Total time spent is greater than 50% in coordination of care (as documented) at patient's floor/unit and/or counseling patient: Time with patient: less than 15 minutes ENTERPRISE APPLICATION ADMINISTRATOR- PN:Subj Post-Op Subjective Date/time seen: 07/02/22 07:24 Subjective: patient reports feeling better, patient has no complaints, patient desires discharge and patient is tolerating oral intake Exam Const: General: cooperative, healthy appearing and comfortable Nutritional Appearance: average body habitus Orientation/consciousness: oriented to person, oriented to place and oriented to time Resp: Effort & Inspection: normal respiratory effort Cardio: Rate: regular rate Rhythm: regular rhythm Heart sounds: S1 normal heart sound present and S2 normal heart sound present GI: Inspection: normal to inspection and incision (Wounds are clean dry and intact) : General: Yes other (Fully still red consistent with blood) ENTERPRISE APPLICATION ADMINISTRATOR - PN: Obj Data Vital Signs Vital Signs: Vital Signs - 24 hr 07/01/22 10:14 07/01/22 15:41 07/01/22 15:50 Temperature 97.2 F L 96.9 F L Pulse Rate 50 L 75 71 Respiratory Rate 18 15 16 Blood Pressure 122/65 92/57 L 110/68 Pulse Oximetry 100 100 100 Oxygen Delivery Room Air Simple Face Mask Simple Face Mask Oxygen Flow Rate 8 8 07/01/22 15:55 07/01/22 16:10 07/01/22 16:20 Temperature Pulse Rate 78 56 L 56 L Respiratory Rate 15 16 16 Blood Pressure 119/72 121/73 126/70 Pulse Oximetry 100 100 100 Oxygen Delivery Simple Face Mask Simple Face Mask Simple Face Mask Oxygen Flow Rate 8 8 8 07/01/22 16:25 07/01/22 16:40 07/01/22 16:50 Temperature 97.3 F L 97.0 F L Pulse Rate 62 59 L 56 L Respiratory Rate 16 16 18 Blood Pressure 135/71 144/62 H 138/65 Pulse Oximetry 100 100 100 Oxygen Delivery Room Air Room Air Room Air Oxygen Flow Rate 07/01/22 17:15 07/01/22 17:15 07/01/22 21:24 Temperature 97.2 F L 98.0 F Pulse Rate 61 61 73 Respiratory Rate 16 14 18 Blood Pressure 126/74 123/65 Pulse Oximetry 100 100 Oxygen Delivery Room Air Oxygen Flow Rate 07/02/22 00:15 07/02/22 04:25 Temperature 98.4 F 97.6 F Pulse Rate 83 60 Respiratory Rate 16 16 Blood Pressure 104/57 L 89/56 L Pulse Oximetry Oxygen Delivery Oxygen Flow Rate Intake/Output Intake/Output: Intake & Output 06/29/22 06/30/22 07/01/22 07/02/22 23:59 23:59 23:59 23:59 Intake Total 1300 2100 Output Total 60 775 Balance 1240 1325 Meds/Results Medications: Active Medications Generic Name Dose Route Start Last Admin Trade Name Freq PRN Reason Stop Dose Admin Acetaminophen 650 mg 07/01/22 16:57 Acetaminophen 325 Mg Tablet PO Q4H PRN Mild Pain (1-3) or Fever Hydrocodone Bitart/Acetaminophen 1 tab 07/01/22 16:57 07/01/22 21:17 Hydrocodone/Acetaminophen (*Crx) 5-325 Mg Tablet PO 1 tab Q4H PRN Administration Pain Rated 4-5 Allopurinol 100 mg 07/02/22 09:00 Allopurinol 100 Mg Tablet PO DAILY [facility] Cephalexin HCl 500 mg 07/02/22 13:00 Cephalexin 500 Mg Capsule PO QID CASANDRA Diphenhydramine HCl 25 mg 07/01/22 16:57 Diphenhydramine Hcl Inj 50 Mg/Ml Vial IV PUSH Q6H PRN Itching Docusate Sodium 100 mg 07/02/22 09:00 Docusate Sodium 100 Mg Capsule PO DAILY CASANDRA Metronidazole 500 mg in 100 mls @ 100 mls/hr 07/01/22 20:00 07/02/22 05:25 Flagyl 500 Mg/Iso Soln 100 Ml IVPB Infused Q8H CASANDRA Infusion P
--- NOTE | 2022-07-02 07:26 | PM.DS ---
DS: Admitting Diagnosis Discharge Date 05/02/2023 Admitting Diagnosis uterine prolapse / uterine fibroids DS: Discharge Diagnosis Discharge Diagnosis (1) Uterine prolapse: Code(s): N81.4 - Uterovaginal prolapse, unspecified Status: Acute (2) Polycystic kidney disease: Code(s): Q61.3 - Polycystic kidney, unspecified Status: Acute (3) Uterine fibroid: Code(s): D25.9 - Leiomyoma of uterus, unspecified Status: Acute DS: Summary Hospital Course Reason for hospitalization: patient was admitted for robotic supracervical hysterectomy and bilateral salpingectomy. Under Greene was to undertake robotic sacral colpopexy Hospital Course: patient was admitted underwent robotic supracervical hysterectomy bilateral salpingectomy with sacral colpopexy. Hospital course was complicated by bloody urine. The blood had done cystoscopy and saw no abnormalities urine output was good but she remained with blood tinged urine. She underwent renal ultrasound which showed the polycystic kidneys but no other abnormalities. Otherwise she was up ambulating eating regular diet general without complaints. She was sent home with a bag and 2 half that out on with Dr. Greene and I will see her in 2 weeks Time Spent with Patient Time attestation: Total time spent providing and/or coordinating discharge services: Exam Const: General: cooperative, healthy appearing and comfortable Nutritional Appearance: average body habitus HENMT: Head: normal to inspection Resp: Effort & Inspection: normal respiratory effort Cardio: Rate: regular rate Rhythm: regular rhythm Heart sounds: S1 normal heart sound present and S2 normal heart sound present GI: Inspection: normal to inspection and incision ( holds clean dry and intact) DS: Data Data Completed and Pending Pending studies at discharge: Pending at discharge 07/01/22 12:55 Surgical [PTH] Routine Discharge Plan Discharge Patient Disposition: Home, Self-Care Discharge Instructions: Follow up with Dr. Rubi Elliott in 2 weeks and follow up with Dr. Greene on 07/04/22 for catheter removal. Patient Instructions: Pain Management (DC), Laparoscopic Hysterectomy (DC), How to Change a Catheter Drainage Bag (DC) Stand Alone Forms: General Discharge Instructions Follow-up/Referrals: Brooks Greene MD [Physician] - Erik Hayes MD [Physician] - Discharge Medications: New hydrocodone-acetaminophen 5-325 mg tablet 1 tablet PO Q6H PRN (Reason: pain) Qty: 20 0RF docusate sodium [Colace] 100 mg capsule 100 mg PO BID Qty: 60 0RF Continued phentermine 37.5 mg tablet 14.2 mg PO 2XW ferrous sulfate [FeroSul] 325 mg (65 mg iron) tablet 325 mg PO DAILY Jynarque 60 mg (AM)/ 30 mg (PM) tablets, sequential 1 ea PO DAILY Rx Instructions: 60MG IN THE MORNING AND 30MG AT HS allopurinol 100 mg tablet 100 mg PO DAILY lisinopril 10 mg tablet 10 mg PO HS ergocalciferol (vitamin D2) [Vitamin D2] 1,250 mcg (50,000 unit) capsule 1,250 mcg PO MONTHLY levonorg-eth estrad triphasic [Enpresse] 50-30 (6)/75-40 (5)/125-30(10) tablet 1 tablet PO DAILY acetaminophen [Tylenol Arthritis Pain] 650 mg tablet extended release 650 mg PO Q12H PRN (Reason: pain) Qty: 10 0RF
[2022-07-02 08:10] VITALS: BP 102/62; PULSE 66; RESP 16; TEMP 36.7; O2SAT 99
[2022-07-02] MEDS: DOCUSATE SODIUM 100 MG CAPSULE PO (08:42)
[2022-07-02] MEDS: HYDROcodone/acetaminophen (*CRX) 5-325 MG TABLET 1 TAB PO ×2 (08:42→12:54)
--- NOTE | 2022-07-02 09:21 | WPDANESPN ---
Anes - Prog Note Post-Op Date/Time: 07/02/22 09:21 Cardiovascular status: normal Respiratory status: normal Airway patency: baseline Mental status: baseline Post-Op hydration status: normal Vital Signs: Last Vital Signs Temp 98.1 F 07/02/22 08:10 Pulse 66 07/02/22 08:10 Resp 16 07/02/22 08:10 BP 102/62 07/02/22 08:10 Pulse Ox 99 07/02/22 08:10 O2 Del Method Room Air 07/02/22 06:45 O2 Flow Rate 8 07/01/22 16:20 Pain Score (VAS): 0 I/O: Intake & Output 07/01/22 07/02/22 07/02/22 23:59 07:59 15:59 Intake Total 1150 3100 500 Output Total 60 775 350 Balance 1090 2325 150 Post-procedural complaints: none Patient Feedback: Patient satisfied with anesthetic care. Other Findings: persistent post-op hematuria. renal ultrasound performed. managed by surgeon. pt also verbalized mild dizziness when getting up.
--- NOTE | 2022-07-02 09:45 | PC.NURSE ---
Jonny Gray RN, has looked over and approved patient's charting that Deanna Tate, Student RN, has completed.
--- NOTE | 2022-07-02 10:54 | PC.NURSE ---
[place] 5mg and Colace were given @ 0843 and a Renal US order were charted/ordered under Brooks Chew RN but Jonny Gray actually gave the medication and ordered the ultrasound. Brooks Chew was logged into the computer and Bakari Gray had not logged her out.
[2022-07-02 12:01] VITALS: BP 123/54; PULSE 59; RESP 16; TEMP 36.2; O2SAT 100
[2022-07-02] MEDS: CEPHALEXIN 500 MG CAPSULE PO (12:54)
== END 2022-07-02 15:40 | disposition home or self-care (01) ==
LOC: ANHSURGERY 09:40 → ANHOB2 16:59
PROVIDERS: Obstetrics & Gynecology; PCP Family Medicine; Visit Provider Urology
PROC: (CPT 57425; principal; 2022-07-01 12:00)
PROC: (CPT 58542; 2022-07-01 12:00)
DX: N81.2 Incomplete uterovaginal prolapse (principal); N39.3 Stress incontinence (female) (male); D25.0 Submucous leiomyoma of uterus; D25.1 Intramural leiomyoma of uterus; I10 Essential (primary) hypertension; Q61.3 Polycystic kidney, unspecified
CPT/HCPCS: 57425; 58542; S2900 ×2; 76775; 88307; 99199; A9270; C1781; C9290; J0690; J1100; J1885; J2250; J2405; J2704; J2710; J3010; J3480; J7030; J7120

== ENCOUNTER 2023-04-17 13:29 | Emergency (ER) | payer OTHER, SELFPAY ==
--- NOTE | 2023-04-17 13:31 | ED.WOUNDLAC ---
HPI - Wound/Laceration General Chief Complaint: Wound/Laceration Stated Complaint: Left Hand Laceration Time Seen by Provider: 04/17/23 13:38 Source: patient, RN notes reviewed and old records reviewed Mode of arrival: ambulatory Limitations: no limitations History of Present Illness HPI narrative: 48-year-old female presents to the [facility] with a laceration to her left hand palmar aspect between fingers 1 and 2. Patient states approximately 1:00 p.m. she was opening a can when it sliced her hand. Bleeding is controlled. Unknown last Tdap Patient also has healing davey to the 2nd and 3rd finger dorsal aspect between PIP and D IP right hand. States the burned occurred last week. Had blisters and states that she popped them Related Data Home Medications Medication Instructions Recorded Confirmed allopurinol 100 mg tablet 100 mg PO DAILY 11/04/20 07/01/22 ergocalciferol (vitamin D2) 1,250 1,250 mcg PO MONTHLY 11/04/20 07/01/22 mcg (50,000 unit) capsule (Vitamin D2) lisinopril 10 mg tablet 10 mg PO HS 11/04/20 07/01/22 ferrous sulfate 325 mg (65 mg 325 mg PO DAILY 03/18/21 07/01/22 iron) tablet (FeroSul) Allergies Allergy/AdvReac Type Severity Reaction Status Date / Time No Known Allergies Allergy Verified 04/17/23 13:38 Review of Systems Review of Systems: All systems reviewed & are unremarkable except as noted in HPI and below Constitutional: Constitutional: Reports no additional constitutional complaints Eyes: Eyes: Reports no additional eye complaints ENT: Reports system reviewed and no additional complaints, except as documented Cardiovascular: Cardiovascular: Reports no additional cardiovascular complaints, Denies chest pain and Denies dyspnea Respiratory: Respiratory: Reports no additional respiratory complaints, Denies chest congestion, Denies cough and Denies dyspnea Gastrointestinal: Gastrointestinal: Reports no additional gastrointestinal complaints, Denies abdominal pain, Denies nausea and Denies vomiting Musculoskeletal: Musculoskeletal: Reports no additional musculoskeletal complaints Integumentary/Breasts: Skin/Breast: Reports as per HPI Neurologic: Reports system reviewed and no additional complaints, except as documented Psychiatric: Psychiatric: Reports no additional psychiatric complaints Allergic/Immunologic: Allergic/Immunologic: Reports no additional allergic/immunologic complaints PMFSH Past Medical History Medical History Chronic kidney disease COVID-19 Hypertension Polycystic kidney disease Surgical History Surgical History No history of previous surgery Family History Family History Mother Breast cancer Carcinoma of colon Other Family history of polycystic kidney disease Social History Social History Smoking status: Never smoker Alcohol intake: never Substance use: never Living arrangements: with family Additional living arrangements comments: AND 2 CHILDREN Gender identity (if verbalized by the patient): Female Spiritual care concerns: No Comments At the time of my signature, I reviewed and agree with the nursing past medical, surgical, social, and family history. There is no relevant family history pertinent to the patient complaint. Exam Const: General: cooperative, healthy appearing, comfortable, no acute distress, well developed, alert and well nourished Nutritional Appearance: well nourished Orientation/consciousness: patient oriented x3 Limitations: no limitations HENMT: Head: normal to inspection Ears: hearing grossly normal bilaterally and external ears normal Face/Nose/Sinus: Normal external nose present, Normal nares present, Normal nasal mucous membranes and turbinates present, normal facial exam
[2023-04-17 13:38] VITALS: BP 108/64; PULSE 66; RESP 16; TEMP 36.6; O2SAT 100
[2023-04-17 13:42] VITALS: BP 108/64; PULSE 66; RESP 16; TEMP 36.6; O2SAT 100
[2023-04-17] MEDS: TETANUS,DIPHTHERIA,AC PERTUSSIS ADULT (0.5 ML) BOOSTRIX IM (13:51)
== END 2023-04-17 14:18 | disposition home or self-care (01) ==
PROVIDERS: Emergency Provider Nurse Practitioner; PCP Family Medicine
DX: S61.412A Laceration without foreign body of left hand, initial encounter (principal); T23.031A Burn of unspecified degree of multiple right fingers (nail), not including thumb, initial encounter; T31.0 Burns involving less than 10% of body surface; I12.9 Hypertensive chronic kidney disease with stage 1 through stage 4 chronic kidney disease, or unspecified chronic kidney disease; N18.9 Chronic kidney disease, unspecified; Z23 Encounter for immunization; X08.8XXA Exposure to other specified smoke, fire and flames, initial encounter; W26.8XXA Contact with other sharp object(s), not elsewhere classified, initial encounter
CPT/HCPCS: 12001; 90471; 90715; 99212; G0463

== ENCOUNTER 2023-09-10 09:05 | Outpatient (CLI) | payer OTHER, SELFPAY ==
--- NOTE | ~2023-09-10 | XR_ITS ---
EXAMINATION: XR heel LT min 2V, XR heel RT min 2V DATE: 09/10/2023 09:39 INDICATION: Bilateral heel pain TECHNIQUE: 1. Lateral and axial views of the left calcaneus were obtained. 2. Lateral and axial views of the right calcaneus were obtained. COMPARISON: None. FINDINGS: Alignment is normal. No fracture. Joint spaces are normal. No erosions or periosteal reaction. Small bilateral plantar calcaneal spurs. Soft tissues are unremarkable. IMPRESSION: 1. Bilateral small plantar calcaneal spurs. Reviewed, dictated and finalized at location A. IMPRESSION: 1. Bilateral small plantar calcaneal spurs.
== END 2023-09-10 09:06 | disposition home or self-care (01) ==
LOC: ANHIMG 09:06
PROVIDERS: PCP Family Medicine; Visit Provider Nurse Practitioner Family
DX: M77.32 Calcaneal spur, left foot (principal); M77.31 Calcaneal spur, right foot
CPT/HCPCS: 73650

== ENCOUNTER 2024-03-20 07:37 | Outpatient (CLI) | payer OTHER, SELFPAY ==
--- NOTE | ~2024-03-20 | MR_ITS ---
EXAMINATION: MR foot RT wo con DATE: 03/20/2024 08:29 INDICATION: Bilateral plantar fasciitis/fibromatosis presenting with heel pain TECHNIQUE: Magnetic resonance imaging (MRI) of the right foot was performed without intravenous contr ast. Sequences included sagittal, coronal, and axial proton-density weighted fast spin echo without a nd with fat saturation and additional sagittal and axial fluid sensitive FSE STIR. The toes are exclu ded from the oaaup-eo-ivas. COMPARISON: None. FINDINGS: Medial ankle ligaments: Deep and superficial deltoid ligaments as well as the spring ligament are normal. Lateral ankle ligaments: The anterior and posterior inferior tibiofibular ligaments are normal. The calcaneofibular and tennis camp instructor ior talofibular ligaments are normal. The anterior talofibular ligament is diminutive which could rep resent sequela of chronic sprain. There is cystlike change underlying the fibular footplate of the po sterior talofibular ligament. Tendons: Achilles tendon is normal. The peroneus longus tendon is normal. There is mild tendinopathy and longi tudinal split tearing of the peroneus brevis tendon. The tibialis anterior and extensor hallucis long us and extensor digitorum longus tendons are normal. There is small amount of fluid extending along t he tibialis posterior tendon sheath consistent with mild tenosynovitis. There is mild tendinopathy wi thout discrete tear of the tibialis posterior tendon distal to the level of the tip of the medial mal leolus. The flexor digitorum longus and flexor hallucis longus tendons are normal. Plantar fascia: There is thickening and mild increased signal at the proximal plantar aponeurosis with mild edema in the immediately adjacent plantar fat pad consistent with mild to moderate plantar fasciitis. Bones/other: Bone alignment is normal. No fracture. There is mild polyarticular osteoarthritis at the tarsal metat arsal joints with subarticular cystlike change at the base of the fourth and fifth metatarsals and mi ld subarticular edema-like signal change at both sides of the second tarsal metatarsal joint. Fluid: Physiologic amount fluid in the joint spaces. IMPRESSION: 1. Mild to moderate acute plantar fasciitis. 2. Mild tibialis posterior tenosynovitis with mild tendinopathy without tear. 3. Mild peroneal tendinopathy with longitudinal split tear. 4. 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 Reviewed, dictated and finalized at location A.
== END 2024-03-20 07:38 | disposition home or self-care (01) ==
PROVIDERS: PCP Family Medicine; Visit Provider Podiatrist Foot & Ankle Surgery
DX: M72.2 Plantar fascial fibromatosis (principal); M65.871 Other synovitis and tenosynovitis, right ankle and foot; M76.821 Posterior tibial tendinitis, right leg; S86.321A Laceration of muscle(s) and tendon(s) of peroneal muscle group at lower leg level, right leg, initial encounter; X58.XXXA Exposure to other specified factors, initial encounter; M19.071 Primary osteoarthritis, right ankle and foot
CPT/HCPCS: 73718

== ENCOUNTER 2024-04-02 14:53 | Outpatient (CLI) | payer OTHER, SELFPAY ==
--- NOTE | ~2024-04-02 | MM_ITS ---
EXAMINATION: MM screening marisa BI w axel HISTORY: Screening TECHNIQUE: Craniocaudal and mediolateral oblique 3-D tomosynthesis images were obtained and synthetic 2-D images were generated. CAD analysis was submitted and interpreted. COMPARISON: No prior mammogram is available for comparison at this institution. BREAST PARENCHYMAL COMPOSITION: Not dense: There are scattered areas of fibroglandular density. FINDINGS: There is no evidence of suspicious mass, calcification, or architectural distortion to sugg est malignancy in either breast. There has been no suspicious interval change. IMPRESSION: 1. No mammographic evidence of malignancy. 2. Recommend routine screening mammography in one year. BI-RADS Category 1: Negative Reviewed, dictated and finalized at location B.
== END 2024-04-02 14:54 | disposition home or self-care (01) ==
LOC: ANHIMG 14:55
PROVIDERS: PCP Family Medicine; Visit Provider Family Medicine
DX: Z12.31 Encounter for screening mammogram for malignant neoplasm of breast (principal)
CPT/HCPCS: 77063; 77067

== ENCOUNTER 2025-04-28 12:06 | Emergency (ER) | payer MEDICARE, MEDICAID, SELFPAY ==
[2025-04-28 12:15] VITALS: BP 122/64; PULSE 72; RESP 18; TEMP 36.7; O2SAT 99
--- NOTE | 2025-04-28 12:33 | ED.EYEPROB ---
HPI - Eye Problem General Chief complaint: Eye Problems Stated complaint: Left Eye Irritation Time Seen by Provider: 04/28/25 12:15 Source: patient and RN notes reviewed Mode of arrival: ambulatory Limitations: no limitations History of Present Illness HPI Narrative: 50-year-old female presents Express Care complaining of left upper eyelid swelling. Patient said yesterday and started with itchiness to her left upper eyelid since then she has reported swelling to her left upper eye. Patient denies any pain, fevers and eczema chills, vision changes, drainage, or any other symptoms. Patient has not tried anything to help with symptoms. Patient reports a history of a kidney transplant. Related Data Home Medications ?Medication ?Instructions ?Recorded ?Confirmed ?Last Taken ?Type allopurinol 100 mg tablet 100 mg PO DAILY 11/04/20 07/01/22 06/30/22 History ergocalciferol (vitamin D2) 1,250 1,250 mcg PO MONTHLY 11/04/20 07/01/22 06/27/22 History mcg (50,000 unit) capsule (Vitamin D2) lisinopril 10 mg tablet 10 mg PO HS 11/04/20 07/01/22 06/30/22 History ferrous sulfate 325 mg (65 mg 325 mg PO DAILY 03/18/21 07/01/22 06/27/22 History iron) tablet (FeroSul) Allergies Allergy/AdvReac Type Severity Reaction Status Date / Time No Known Allergies Allergy Verified 04/28/25 12:12 Review of Systems Review of Systems: CONSTITUTIONAL: Denies fever, chills, or sweats. EYES: Denies visual changes, redness, or discharge. Positive for left eyelid swelling. ENT: Denies rhinorrhea, congestion, sore throat, or otalgia. CARDIOVASCULAR: Denies chest pain, palpitations, or edema. RESPIRATORY: Denies cough or dyspnea. GASTROINTESTINAL: Denies abdominal pain, nausea, vomiting, or diarrhea. GENITOURINARY: Denies dysuria or hematuria. SKIN: Denies rash or itching. MUSCULOSKELETAL: Denies back pain, joint pain, or myalgia. NEUROLOGIC: Denies headache, numbness, or weakness. PSYCHIATRIC: Denies anxiety or depression. All other systems reviewed are negative, except as documented in HPI. [facility] Past Medical History Medical History COVID-19 Polycystic kidney disease Hypertension Chronic kidney disease Surgical History Surgical History No history of previous surgery Family History Family History Mother Breast cancer Carcinoma of colon Other Family history of polycystic kidney disease Social History Social History Smoking status: Never smoker Alcohol intake: never Substance use: never Living arrangements: with family Additional living arrangements comments: AND 2 CHILDREN Gender identity (if verbalized by the patient): Female Spiritual care concerns: No Comments At the time of my signature, I reviewed and agree with the nursing past medical, surgical, social, and family history. There is no relevant family history pertinent to the patient complaint. Exam Narrative: GENERAL: This is a well-nourished, well-developed adult, in no apparent distress. They are non ill-appearing, nontoxic appearing. HEAD: normocephalic, atraumatic. EYES: Sclera clear/white. Conjunctiva normal. Vision is grossly intact. Extraocular movements intact. Right upper and lower and left lower eyelid are normal. Left upper eyelid edematous nontender to palpate.. Pupils PERRLA EARS: External ears normal, Hearing grossly intact. NOSE: External nose normal THROAT: Mucous membranes moist, NECK: Neck supple, CARDIOVASCULAR: Regular rate and rhythm RESPIRATORY: Respiratory rate normal, respiratory effort nonlabored, no respiratory distress SKIN: warm, Dry, intact with no suspicious lesions or rash, good texture and turgor. NEURO: awake, alert, and oriented to person, place and time. There were no obvious focal neurologic abnormalities. EXTREMITIES: No joint tenderness, effusion, or edema noted. BACK: Nontender without deformity. Course Course Emergency Course: Portions of this record may have been created with voice recognition software Level of Care: Express Care Visit Vital Signs Vital signs: Vital Signs Temperature 98.0 F 04/28/25 12:15 Pulse Rate 72 04/28/25 12:15 Respiratory Rate 18 04/28/25 12:15 Blood Pressure 122/64 04/28/25 12:15 Pulse Oximetry 99 04/28/25 12:15 Oxygen Delivery Room Air 04/28/25 12:15 Temperature 98.0 F 04/28/25 12:15 Pulse Rate 72 04/28/25 12:15 Respiratory Rate 18 04/28/25 12:15 Blood Pressure 122/64 04/28/25 12:15 Pulse Oximetry 99 04/28/25 12:15 Oxygen Delivery Room Air 04/28/25 12:15 Reviewed MDM - Eye Problem MDM Narrative Medical decision making narrative: Patient has left upper eyelid swelling. Will give her short course of Medrol Dosepak and recommend her taking daily Zyrtec for 5 days. Discussed the use of cold compresses will. No evidence of infection. Discussed physical exam findings. Advised supportive measures and signs/symptoms to go to the ER. Pt is appropriate for outpt treatment and f/u. Differential Diagnosis Differential diagnosis: Likely conjunctivitis and other (Allergic reaction, angioedema, eyelid swelling) Critical Care Time Critical Care Time Critical Care Time: No Discharge Plan Discharge Clinical Impression: Swelling of left upper eyelid Patient Disposition: Home Condition: Stable Instructions: Eyelid Swelling (ED) Additional Instructions: Apply cold compresses to the affected eyelid 15-20 minutes at a time, few times a day to help with swelling. Take Zyrtec daily for 5 days. Take the Medrol Dosepak as directed. Follow-up with PCP in 3-5 days. Go to the ER for any serious concerns or any worsening swelling, vision problems, or breathing problems. Patient Language: Telugu Prescriptions: New methylprednisolone 4 mg tablets,dose pack See Rx Instructions .ROUTE .COMPLEX Qty: 21 0RF Rx Instructions: for 6 days No Action ferrous sulfate [FeroSul] 325 mg (65 mg iron) tablet 325 mg PO DAILY docusate sodium [Colace] 100 mg capsule 100 mg PO BID Qty: 60 0RF allopurinol 100 mg tablet 100 mg PO DAILY lisinopril 10 mg tablet 10 mg PO HS ergocalciferol (vitamin D2) [Vitamin D2] 1,250 mcg (50,000 unit) capsule 1,250 mcg PO MONTHLY acetaminophen [Tylenol Arthritis Pain] 650 mg tablet extended release 650 mg PO Q12H PRN (Reason: pain) Qty: 10 0RF Follow-up/Referrals: Emmanuel,Shelli Trevino NP [Primary Care Provider, Unknown] Time of Disposition: 12:29
== END 2025-04-28 12:32 | disposition home or self-care (01) ==
PROVIDERS: PCP Nurse Practitioner Family
DX: H02.844 Edema of left upper eyelid (principal); I12.9 Hypertensive chronic kidney disease with stage 1 through stage 4 chronic kidney disease, or unspecified chronic kidney disease; N18.9 Chronic kidney disease, unspecified; Z94.0 Kidney transplant status; Q61.3 Polycystic kidney, unspecified
CPT/HCPCS: 99213; G0463

== ENCOUNTER 2025-04-29 11:56 | Emergency (ER) | payer MEDICARE, MEDICAID, SELFPAY ==
--- NOTE | 2025-04-29 11:59 | ED.EYEPROB ---
HPI - Eye Problem General Chief complaint: Eye Problems Stated complaint: left eye irritation Time Seen by Provider: 04/29/25 11:58 Source: patient Mode of arrival: ambulatory Limitations: no limitations History of Present Illness HPI Narrative: Heather is a 50 year old female patient presenting to the clinic today with c/o left upper eye lid swelling. She was seen in the clinic yesterday and give Rx for medrol dose pack. She is requesting a Rx for some topical cream. Patient is a kidney transplant recipient- she discussed the Medrol Dosepak with her telephonic nurse case manager and they recommend she not take it as she is already on prednisone daily. They are recommending topical steroids. Related Data Home Medications ?Medication ?Instructions ?Recorded ?Confirmed ?Last Taken ?Type allopurinol 100 mg tablet 100 mg PO DAILY 11/04/20 07/01/22 06/30/22 History ergocalciferol (vitamin D2) 1,250 1,250 mcg PO MONTHLY 11/04/20 07/01/22 06/27/22 History mcg (50,000 unit) capsule (Vitamin D2) lisinopril 10 mg tablet 10 mg PO HS 11/04/20 07/01/22 06/30/22 History ferrous sulfate 325 mg (65 mg 325 mg PO DAILY 03/18/21 07/01/22 06/27/22 History iron) tablet (FeroSul) Allergies Allergy/AdvReac Type Severity Reaction Status Date / Time No Known Allergies Allergy Verified 04/29/25 12:09 Review of Systems Review of Systems: Pertinent positives per HPI. Patient denies any fever, chills, rash, headache, visual changes, dizziness, cough, runny nose, sore throat, shortness of breath, chest pain, palpitations, nausea, vomiting, diarrhea, constipation, abdominal pain, or any urinary issues. [facility] Past Medical History Medical History COVID-19 Polycystic kidney disease Hypertension Chronic kidney disease Surgical History Surgical History No history of previous surgery Family History Family History Mother Breast cancer Carcinoma of colon Other Family history of polycystic kidney disease Social History Social History Smoking status: Never smoker Alcohol intake: never Substance use: never Living arrangements: with family Additional living arrangements comments: AND 2 CHILDREN Gender identity (if verbalized by the patient): Female Spiritual care concerns: No Comments At the time of my signature, I reviewed and agree with the nursing past medical, surgical, social, and family history. There is no relevant family history pertinent to the patient complaint. Exam Narrative: General: Well-developed, well nourished, in no apparent distress Head: Normocephalic, atraumatic Eyes: Pupils equally round and reactive to light bilaterally, EOM intact, sclera and conjunctive clear, no discharge, right lids normal, left upper eye lid swollen-mild ttp, no redness or erythema Ears: TMs intact and clear, ear canals clear, no drainage, grossly hearing normal. Nose: Nares patent, no discharge, no inflammation, no sinus tenderness. Mouth: Oropharynx without lesions or masses, good dentition, MMM. Neck: Supple, trachea midline, no enlargement of anterior or posterior cervical nodes, no thyroid masses or goiter palpable. Cardio: Regular rate and rhythm, s1 and s2 normal, no murmur appreciated. Resp: Clear to auscultation bilaterally anteriorly and posteriorly, no rhonchi, rales, wheezing or rubs Course Course Emergency Course: Portions of this record may have been created with voice recognition software. Level of Care: Express Care Visit Vital Signs Vital signs: Vital Signs Temperature 36.9 C 04/29/25 12:06 Pulse Rate 75 04/29/25 12:06 Respiratory Rate 16 04/29/25 12:06 Blood Pressure 115/68 04/29/25 12:06 Pulse Oximetry 100 04/29/25 12:06 Oxygen Delivery Room Air 04/29/25 12:06 Temperature 36.9 C 04/29/25 12:06 Pulse Rate 75 04/29/25 12:06 Respiratory Rate 16 04/29/25 12:06 Blood Pressure 115/68 04/29/25 12:06 Pulse Oximetry 100 04/29/25 12:06 Oxygen Delivery Room Air 04/29/25 12:06 Vital signs reviewed MDM - Eye Problem MDM Narrative Medical decision making narrative: At the time of visit patient is resting comfortably on the exam table. Patient appears to be nontoxic. C/o left upper eye lid swelling. She was seen in the clinic yesterday and give Rx for medrol dose pack. She is requesting a Rx for some topical cream. Patient is a kidney transplant recipient- she discussed the Medrol Dosepak with her telephonic nurse case manager and they recommend she not take it as she is already on prednisone daily. They are recommending topical steroids. On exam patient has for eyelid swelling without redness, mildly uncomfortable with palpation. No eye pain, no drainage, no foreign body, or visual changes. Plan: I suspect patient has left eyelid swelling. Prescription for triamcinolone cream was sent to the pharmacy. Supportive measures were discussed with the patient and they voiced understanding discharge instructions and agrees to treatment plan. Return precautions reviewed Differential Diagnosis Differential diagnosis: Likely corneal abrasion, conjunctivitis, acute iritis, hyphema, periorbital cellulitis, subconjunctival hemorrhage, glaucoma, corneal ulcer and ruptured globe Discharge Plan Discharge Clinical Impression: Swelling of left eyelid Qualifiers: Eyelid: upper Qualified Code(s): H02.844 - Edema of left upper eyelid Patient Disposition: Home Condition: Stable Instructions: Antibiotic Form Additional Instructions: Apply triamcinolone cream to the affected areas as directed May continue taking Zyrtec daily as directed. Increase fluids and stay well-hydrated May take Benadryl 25 to 50 mg every 6 hours as needed for itching May apply cool compresses to affected areas to help alleviate swelling/itching Avoid scratching as this can cause a secondary infection Follow-up with your PCP in 3 to 5 days if symptoms persist or sooner if they worsen Go to the emergency room if you develop any shortness of breath, facial swelling, or any other worsening of condition. Patient Language: Egyptian Prescriptions: New triamcinolone acetonide 0.1 % cream 1 applic topical BID 7 Days Qty: 30 0RF No Action ferrous sulfate [FeroSul] 325 mg (65 mg iron) tablet 325 mg PO DAILY methylprednisolone 4 mg tablets,dose pack See Rx Instructions .ROUTE .COMPLEX Qty: 21 0RF Rx Instructions: for 6 days docusate sodium [Colace] 100 mg capsule 100 mg PO BID Qty: 60 0RF allopurinol 100 mg tablet 100 mg PO DAILY lisinopril 10 mg tablet 10 mg PO HS ergocalciferol (vitamin D2) [Vitamin D2] 1,250 mcg (50,000 unit) capsule 1,250 mcg PO MONTHLY acetaminophen [Tylenol Arthritis Pain] 650 mg tablet extended release 650 mg PO Q12H PRN (Reason: pain) Qty: 10 0RF Follow-up/Referrals: Emmanuel,Shelli Trevino [employer] [Primary Care Provider, Unknown] Time of Disposition: 12:30 Quality NIHSS Nursing Documentation ED NIHSS nursing documentation: reviewed/agree
[2025-04-29 12:06] VITALS: BP 115/68; PULSE 75; RESP 16; TEMP 36.9; O2SAT 100
== END 2025-04-29 12:17 | disposition home or self-care (01) ==
PROVIDERS: Emergency Provider Nurse Practitioner Family; PCP Nurse Practitioner Family
DX: H02.844 Edema of left upper eyelid (principal); I12.9 Hypertensive chronic kidney disease with stage 1 through stage 4 chronic kidney disease, or unspecified chronic kidney disease; N18.9 Chronic kidney disease, unspecified; Q61.3 Polycystic kidney, unspecified; Z94.0 Kidney transplant status; Z86.16 Personal history of COVID-19
CPT/HCPCS: 99213; G0463